=== PATIENT | female | born 1995 | race African-American/Black ===

== ENCOUNTER 2017-04-03 14:25 | Emergency (ER) | payer MEDICAID, OTHER ==
[~2017-04-03] VITALS: Ht 167.6 cm; Wt 67.6 kg
[2017-04-03 14:48] VITALS: BP 128/88
[2017-04-03 18:34] LABS: Hemoglobin 7.9 g/dL (12.2-16.2); Monocytes % (auto) 7.3 % (0.0-12.0)
[2017-04-03 18:35] LABS: Basophils # (auto) 0.2 uL; Basophils % (auto) 0.6 % (0.0-2.0); Eosinophils # (auto) 1.1 uL; Eosinophils % (auto) 4.3 % (0.0-7.0); Hematocrit 22.7 % (36.0-46.0); Lymphocytes # (auto) 10.4 uL; Lymphocytes % (auto) 40.6 % (10.0-50.0); Mean Corpuscular Hemoglobin 30.9 pg (28.0-32.0); Mean Corpuscular Hgb Conc. 34.9 g/dL (32.0-36.0); Mean Corpuscular Volume 88.6 fL (80.0-100.0); Mean Platelet Volume 9.1 fL (6.9-10.8); Monocytes # (auto) 1.9 uL; Neutrophils # (auto) 12.1 uL; Neutrophils % (auto) 47.2 % (37.0-80.0); Nucleated Red Blood Cells % 1.8 %; Platelet Count (auto) 476 10^3/uL (140-450); White Blood Cell 25.6 10^3/uL (4.4-10.8)
[2017-04-03 18:37] LABS: Red Cell Distribution Width 25.6 % (11.8-14.3)
[2017-04-03 18:57] LABS: Alkaline Phosphatase 114 U/L (45-117); Anion Gap 8 (5-15); Aspartate Aminotransferase 193 U/L (15-37); BUN/Creatinine Ratio 18.4; Bilirubin, Total 4.9 mg/dL (0.2-1.0); Blood Urea Nitrogen 7 mg/dL (7-18); Calcium 8.6 mg/dL (8.5-10.1); Carbon Dioxide 24 mmol/L (21-32); Chloride 107 mmol/L (98-107); GFR African American 278 mL/min; GFR Non-African American 229 mL/min; Glucose 87 mg/dL (74-106); Potassium 4.1 mmol/L (3.5-5.1); Sodium 139 mmol/L (136-145); Total Protein 8.6 g/dL (6.4-8.2)
[2017-04-03 19:56] LABS: Anisocytosis Moderate; Burr Cells FEW; Giant Platelets Few; Platelet Estimate Increased; Sickle Cells MANY
== END 2017-04-03 22:01 | disposition left against medical advice (07) ==
LOC: ER 14:25
DX: D57.1 Sickle-cell disease without crisis (principal); R11.2 Nausea with vomiting, unspecified; Z53.29 Procedure and treatment not carried out because of patient's decision for other reasons
CPT/HCPCS: 36415; 80053; 84484; 85025